=== PATIENT | male | born 1960 | race Caucasian/White ===

== ENCOUNTER 2019-04-07 08:07 | Emergency (ER) | payer OTHER ==
[~2019-04-07] VITALS: Ht 180.3 cm; Wt 90.7 kg
[2019-04-07 08:07] VITALS: BP 151/101
--- NOTE | 2019-04-07 08:29 | PHYS DOC ---
Past History Past Medical History: No Pertinent History Past Surgical History: No Surgical History Smoking: Cigarettes, Less than 1pk/day Alcohol Use: Occasionally Drug Use: None Adult General Chief Complaint Chief Complaint: ELBOW PROBLEM HPI HPI Patient is a 58-year-old male presents complaining of right, dominant, elbow pain. He accidentally hit it against a surface approximately 2 weeks ago. Reinjured again yesterday. He has been having some numbness in the radial aspect of his hand radiating from his elbow since the initial injury, approximately 2 weeks ago. Slightly increased pain with movement. He is allergic to aspirin so he has not taken any anti-inflammatory pain medicine. Increased discomfort with grasping objects and a subjective weakness. Pain seems to be more on the lateral aspect of the elbow. No radiation into the arm or shoulder. No association with exertion. Pain is mild.[] Review of Systems Review of Systems Constitutional: Denies fever or chills [] Eyes: Denies change in visual acuity, redness, or eye pain [] HENT: Denies nasal congestion or sore throat [] Respiratory: Denies cough or shortness of breath [] Cardiovascular: Chest pain or palpitations[] GI: Denies abdominal pain, nausea, vomiting, bloody stools or diarrhea [] : Denies dysuria or hematuria [] Musculoskeletal: See history of present illness[] Integument: Denies rash or skin lesions [] Neurologic: Denies headache, focal weakness or sensory changes [] Endocrine: Denies polyuria or polydipsia [] All other systems were reviewed and found to be within normal limits, except as documented in this note. Allergies Allergies Allergies Coded Allergies Type Severity Reaction Last Updated Verified aspirin Allergy Unknown 04/07/19 Yes codeine Allergy Unknown 04/07/19 Yes diphenhydramine Allergy Unknown 04/07/19 Yes Physical Exam Physical Exam Constitutional: Well developed, well nourished, no acute distress, non-toxic appearance. [] HENT: Normocephalic, atraumatic, bilateral external ears normal, oropharynx moist, no oral exudates, nose normal. [] Eyes: PERRLA, EOMI, conjunctiva normal, no discharge. [] Neck: Normal range of motion, no tenderness, supple, no stridor. [] Cardiovascular:Heart rate regular rhythm, no murmur [] Lungs & Thorax: Bilateral breath sounds clear to auscultation [] Abdomen: Not examined. [] Skin: Warm, dry, no erythema, no rash. [] Back: No tenderness, no CVA tenderness. [] Extremities: Right elbow has tenderness along the radial head and the lateral epicondyles. There is full active range of motion of the elbow. Strength is 5/5, he is distally neurovascularly intact. A joint above and joined below were evaluated and were normal. There was no pain with axial loading of the radius, ulna, nor humerus. The other 3 extremities show: No tenderness, no cyanosis, no clubbing, ROM intact, no edema. [] Neurologic: Alert and oriented X 3, normal motor function, normal sensory function, no focal deficits noted. [] Psychologic: Affect normal, judgement normal, mood normal. [] EKG EKG [] Radiology/Procedures Radiology/Procedures No acute fracture or dislocation on right elbow x-ray[] Course & Med Decision Making Course & Med Decision Making Pertinent Labs and Imaging studies reviewed. (See chart for details) ED course: Patient arrived, was placed in bed, and tolerated exam well. Ibuprofen was offered for pain management, but patient deferred due to his history of nausea and vomiting with aspirin. He was transported to and from radiology with any complications. An Satnam wrap was applied, he was distally neurovascularly intact after Satnam wrap application. All questions were answered. He was discharged in improved condition. Medical decision making: There is no evidence of an acute fracture, dislocation, significant neurologic or vascular compromise.[] Dragon Disclaimer Dragon Disclaimer This electronic medical record was generated, in whole or in part, using a voice recognition dictation system. Departure Departure: Impression: Primary Impression: Right elbow pain Disposition: 01 HOME, SELF-CARE Condition: IMPROVED Referrals: PCP,NO (PCP) Patient Instructions: Elbow Injury Additional Instructions: Follow-up with your regular doctor in 2 days. If you do not have regular doctor list of local clinics will be provided for you. Return to the ER if worsening pain, weakness, numbness, or any other concerns. Scripts Prednisone (PREDNISONE) 20 Mg Tablet 20 MG PO as directed for inflammation, #20 TAB 3 tablets daily on days 1, 2, and 3 2 tablets daily on days 4, 5, and 6 1 tablet daily on days 7, 8, and 9 Half tablet daily on days 10 through 13 Prov: RAJENDRA RETANA DO 04/07/19 Meloxicam (MELOXICAM) 7.5 Mg Tablet 7.5 MG PO DAILY for inflammation, #20 TAB Prov: RAJENDRA RETANA DO 04/07/19 RAJENDRA RETANA DO Apr 07, 2019 08:29
[2019-04-07] MEDS ORDERED: PRED20TA PO (08:47)
[2019-04-07] MEDS ORDERED: MELO7.5T29 PO (08:47)
--- NOTE | 2019-04-07 08:47 | RAD ---
Examination: ELBOW RIGHT 3V History: Previous history of injury. Pain recently after lifting heavy items Comparison/Correlation: None Findings: Total 3 images of the right elbow were obtained. Significant enthesopathy at the distal triceps tendon insertion site noted. Joint spaces are unremarkable. No acute fracture or bony destruction. No evidence of joint effusion. Impression: No acute process. Electronically signed by: Benji Solorzano MD (04/07/2019 8:44 AM) [facility]
== END 2019-04-07 08:53 | disposition home or self-care (01) ==
LOC: ER 08:07
DX: M25.521 Pain in right elbow (principal); R20.0 Anesthesia of skin; F17.210 Nicotine dependence, cigarettes, uncomplicated; Z88.6 Allergy status to analgesic agent; Z88.5 Allergy status to narcotic agent; Z88.8 Allergy status to other drugs, medicaments and biological substances
CPT/HCPCS: 73080; 99284

== ENCOUNTER 2019-04-09 07:40 | Emergency (ER) | payer OTHER ==
[~2019-04-09] VITALS: Ht 180.3 cm; Wt 86.1 kg
[~2019-04-09 07:40] MED LIST: MELO7.5T29 PO; PRED20TA PO
[2019-04-09 08:23] LABS: ALBUMIN 3.9 g/dL (3.4-5.0); ALBUMIN/GLOBULIN RATIO 1.1 (1.0-1.7); CALCIUM 9.1 mg/dL (8.5-10.1); GFR 76.7; POTASSIUM 4.2 mmol/L (3.5-5.1); TOTAL BILIRUBIN 0.3 mg/dL (0.2-1.0); TOTAL PROTEIN 7.4 g/dL (6.4-8.2)
[2019-04-09 08:24] LABS: BASO % 1 % (0-3); EOS # 0.2 x10^3/uL (0.0-0.7); EOS % 3 % (0-3); HEMATOCRIT 45.9 % (39.0-53.0); HEMOGLOBIN 15.7 g/dL (13.0-17.5); LYMPH % 32 % (24-48); MEAN CORPUSCULAR HEMOGLOBIN 30 pg (25-35); MEAN CORPUSCULAR HGB CONC 34 g/dL (31-37); MEAN CORPUSCULAR VOLUME 88 fL (79-100); MONO # 0.4 x10^3/uL (0.0-1.1); MONO % 7 % (0-9); NEUT # 3.6 x10^3uL (1.8-7.7); NEUT % 58 % (31-73); PLATELET COUNT 237 x10^3/uL (140-400); RED BLOOD COUNT 5.24 x10^6/uL (4.30-5.70); RED CELL DISTRIBUTION WIDTH 13.7 % (11.5-14.5); WHITE BLOOD COUNT 6.2 x10^3/uL (4.0-11.0)
--- NOTE | 2019-04-09 08:25 | PHYS DOC ---
Past History Past Medical History: No Pertinent History Past Surgical History: Other Additional Past Surgical Histo: right knee surgery Smoking: Cigarettes, Less than 1pk/day Alcohol Use: Occasionally Drug Use: None Adult General Chief Complaint Chief Complaint: ABDOMINAL PAIN [facility] HPI 58-year-old male presents with abdominal pain and concern for hernia. The patient has a known umbilical hernia for quite some time. He was told by the previous physician that if it ever becomes hard and he has abdominal pain he should come to the hospital. The patient got up at 5:30 this morning was feeling fine. Around 6 AM he started to get pain in that general area of the hernia. He palpated the hernia and it was found to be firm. His pain was an 8 out of 10. He describes it as a cramping sensation. Since coming to the hospital, the pain has improved and the hernia is no longer firm to the touch. The patient is wants to make sure it's not incarcerated. He denies fever or chills. He's had no vomiting. Last bowel movement was yesterday. Review of Systems Review of Systems Constitutional: Denies fever or chills [] Eyes: Denies change in visual acuity, redness, or eye pain [] HENT: Denies nasal congestion or sore throat [] Respiratory: Denies cough or shortness of breath [] Cardiovascular: No additional information not addressed in HPI [] GI: umbilical abdominal pain. Denies nausea, vomiting, bloody stools or diarrhea [] : Denies dysuria or hematuria [] Musculoskeletal: Denies back pain or joint pain [] Integument: Denies rash or skin lesions [] Neurologic: Denies headache, focal weakness or sensory changes [] Endocrine: Denies polyuria or polydipsia [] All other systems were reviewed and found to be within normal limits, except as documented in this note. Allergies Allergies Allergies Coded Allergies Type Severity Reaction Last Updated Verified aspirin Allergy Unknown 04/09/19 Yes codeine Allergy Unknown 04/09/19 Yes diphenhydramine Allergy Unknown 04/09/19 Yes Physical Exam Physical Exam Constitutional: Well developed, well nourished, no acute distress, non-toxic appearance. [] HENT: Normocephalic, atraumatic, bilateral external ears normal, oropharynx moist, no oral exudates, nose normal. [] Eyes: PERRLA, EOMI, conjunctiva normal, no discharge. [] Neck: Normal range of motion, no tenderness, supple, no stridor. [] Cardiovascular:Heart rate regular rhythm, no murmur [] Lungs & Thorax: Bilateral breath sounds clear to auscultation [] Abdomen: Bowel sounds normal, soft, no tenderness, no masses, no pulsatile masses. Periumbilical hernia, easily reducible. [] Skin: Warm, dry, no erythema, no rash. [] Back: No tenderness, no CVA tenderness. [] Extremities: No tenderness, no cyanosis, no clubbing, ROM intact, no edema. [] Neurologic: Alert and oriented X 3, normal motor function, normal sensory function, no focal deficits noted. [] Psychologic: Affect normal, judgement normal, mood normal. [] Current Patient Data Vital Signs Vital Signs Date Time Temp Pulse Resp B/P (MAP) Pulse Ox O2 Delivery O2 Flow Rate FiO2 04/09/19 07:48 97.6 84 18 98 Room Air EKG EKG [] Radiology/Procedures Radiology/Procedures [] Impressions: CT scan of the abdomen and pelvis with contrast 04/09/2019 CLINICAL HISTORY: Umbilical pain. TECHNIQUE: After the intravenous administration of 75 cc of Omnipaque 300 only, contiguous, 5 mm axial sections were obtained through the abdomen and pelvis. One or more of the following individualized dose reduction techniques were utilized for this study: 1. Automated exposure control. 2. Adjustment of the mA and/or kV according to patient size. 3. Use of iterative reconstruction technique. FINDINGS: Images through the lung bases demonstrate minimal dependent subsegmental atelectasis bilaterally. The liver, spleen, pancreas, and adrenal glands are within normal limits. Rounded low-attenuation lesions are seen involving both kidneys. These measure 3 mm to 3 cm in size. They likely represent cysts. Atheromatous/atherosclerotic plaque formation is seen involving the abdominal aorta and its branches. The abdominal aorta tapers normally. Calcified gallstones are seen within the gallbladder which is slightly contracted. No free fluid or free air is seen within the abdomen. There is no evidence of bowel obstruction. The appendix is well-visualized and is within normal limits. Multiple diverticula are seen involving the colon, particularly the descending and sigmoid colon. No inflammatory changes are seen in the adjacent fat. An umbilical hernia is seen. The hernia sac measures 3.5 cm in size. It contains fat. No bowel loop is seen extending into the hernia sac. Images through the pelvis demonstrate the urinary bladder distended with urine. The prostate gland is enlarged likely related to BPH. A punctate calcification is seen within the inferior pelvis consistent with a phlebolith. No free fluid is seen. Minimal S-shaped curvature of the thoracolumbar spine is noted. Degenerative changes are seen involving lower thoracic and mid and lower lumbar spine along with both hips. IMPRESSION: No acute abnormality is seen. Electronically signed by: Rex Vázquez MD (04/09/2019 9:24 AM) [place] [id number] DICTATED AND SIGNED BY: REX VÁZQUEZ MD DATE: 04/09/19923 CC: PALMER STONE DO; PCP,MIKAELA ~ Course & Med Decision Making Course & Med Decision Making Pertinent Labs and Imaging studies reviewed. (See chart for details) Patient's labs are unremarkable. His CT shows that there is only found in the umbilical hernia. There is no bowel involved. He is stable for discharge at this time. [] Dragon Disclaimer Dragon Disclaimer This electronic medical record was generated, in whole or in part, using a voice recognition dictation system. Departure Departure: Impression: Primary Impression: Umbilical hernia Disposition: 01 HOME, SELF-CARE Condition: STABLE Referrals: PCP,MIKAELA (PCP) Patient Instructions: Hernia Problem Qualifiers Primary Impression: Umbilical hernia Obstruction and gangrene presence: without obstruction or gangrene Qualified Codes: K42.9 - Umbilical hernia without obstruction or gangrene PALMER STONE DO Apr 09, 2019 08:25
[2019-04-09] MEDS ORDERED: IOHEXOL 300 MG/ML 75 ML VIAL. IV ONE (08:30)
--- NOTE | 2019-04-09 09:27 | RAD ---
CT scan of the abdomen and pelvis with contrast 04/09/2019 CLINICAL HISTORY: Umbilical pain. TECHNIQUE: After the intravenous administration of 75 cc of Omnipaque 300 only, contiguous, 5 mm axial sections were obtained through the abdomen and pelvis. One or more of the following individualized dose reduction techniques were utilized for this study: 1. Automated exposure control. 2. Adjustment of the mA and/or kV according to patient size. 3. Use of iterative reconstruction technique. FINDINGS: Images through the lung bases demonstrate minimal dependent subsegmental atelectasis bilaterally. The liver, spleen, pancreas, and adrenal glands are within normal limits. Rounded low-attenuation lesions are seen involving both kidneys. These measure 3 mm to 3 cm in size. They likely represent cysts. Atheromatous/atherosclerotic plaque formation is seen involving the abdominal aorta and its branches. The abdominal aorta tapers normally. Calcified gallstones are seen within the gallbladder which is slightly contracted. No free fluid or free air is seen within the abdomen. There is no evidence of bowel obstruction. The appendix is well-visualized and is within normal limits. Multiple diverticula are seen involving the colon, particularly the descending and sigmoid colon. No inflammatory changes are seen in the adjacent fat. An umbilical hernia is seen. The hernia sac measures 3.5 cm in size. It contains fat. No bowel loop is seen extending into the hernia sac. Images through the pelvis demonstrate the urinary bladder distended with urine. The prostate gland is enlarged likely related to BPH. A punctate calcification is seen within the inferior pelvis consistent with a phlebolith. No free fluid is seen. Minimal S-shaped curvature of the thoracolumbar spine is noted. Degenerative changes are seen involving lower thoracic and mid and lower lumbar spine along with both hips. IMPRESSION: No acute abnormality is seen. Electronically signed by: Rex Reich MD (04/09/2019 9:24 AM) [place] [id number]
[2019-04-09 09:59] VITALS: BP 136/98
== END 2019-04-09 09:58 | disposition home or self-care (01) ==
LOC: ER 07:40
DX: K42.9 Umbilical hernia without obstruction or gangrene (principal); F17.210 Nicotine dependence, cigarettes, uncomplicated; Z88.6 Allergy status to analgesic agent; Z88.5 Allergy status to narcotic agent; Z88.8 Allergy status to other drugs, medicaments and biological substances
CPT/HCPCS: 36415; 74177; 80053; 85025; 99285; Q9967

== ENCOUNTER 2019-06-26 10:13 | Emergency (ER) | payer OTHER ==
[~2019-06-26] VITALS: Ht 182.9 cm; Wt 79.8 kg
--- NOTE | 2019-06-26 10:35 | PHYS DOC ---
Past History Past Medical History: No Pertinent History Past Surgical History: Other Additional Past Surgical Histo: right knee surgery Smoking: Cigarettes, Less than 1pk/day Alcohol Use: Occasionally Drug Use: None Adult General Chief Complaint Chief Complaint: CHEST PAIN HPI HPI Patient is a 58-year-old male who presents to the emergency department from his PCPs office. He states that for the past week, he has had a cough, productive of greenish and yellow sputum, as well as pleuritic lower back pain, as well as pain in that same spot with coughing. He DENIES having any chest pain, exertional, pleuritic, or otherwise. He has had a weight loss of about 10 pounds in the past month or so, unintentional. His PCPs office called and spoke to the nursing staff here, although I did not get a chance to speak to the patient's PCP, and it appears that he had some outpatient difficulty obtaining a CT, as he has concern for PE or lung mass, although reportedly the PCP did "a workup" about a month ago for chest discomfort. The patient has not had any nausea or vomiting, but does report some occasional loose stools. He has not had any fevers or chills, and denies any significant shortness of breath at this time. His main complaint is cough and lower back pain which is worse with coughing and deep breathing. There are no alleviating or exacerbating factors to the patient's symptoms. The patient's PCPs note from today has been reviewed, and that is the only record accessible to me at this time. Review of Systems Review of Systems Constitutional: Denies fever or chills [] Eyes: Denies change in visual acuity, redness, or eye pain [] HENT: Denies nasal congestion or sore throat [] Respiratory:No additional information not addressed in HPI [] Cardiovascular: The patient denies any shortness of breath, chest pain, palpitations, or orthopnea[] GI: Denies abdominal pain, nausea, vomiting, bloody stools or diarrhea [] : Denies dysuria or hematuria [] Musculoskeletal: Denies back pain or joint pain, other than as discussed in the history of present illness [] Integument: Denies rash or skin lesions [] Neurologic: Denies headache, focal weakness or sensory changes [] Endocrine: Denies polyuria or polydipsia [] All other systems were reviewed and found to be within normal limits, except as documented in this note. Allergies Allergies Allergies Coded Allergies Type Severity Reaction Last Updated Verified aspirin Allergy Unknown 04/09/19 Yes codeine Allergy Unknown 04/09/19 Yes diphenhydramine Allergy Unknown 04/09/19 Yes Physical Exam Physical Exam PHYSICAL EXAM: CONSTITUTIONAL: Well developed, well nourished HEAD: normocephalic, atraumatic EENT: PERRL, EOMI. Conjunctivae normal color, sclerae non-icteric; moist mucous membranes. NECK: Supple, non-tender; no meningismus. LUNGS: There is mild scattered expiratory rhonchi and wheezes, breath sounds are mildly diminished, breathing even and unlabored. HEART: Regular rate and rhythm, no murmur CHEST: No deformity; non-tender ABDOMEN: The abdomen is soft, and non-tender, no masses or bruits. EXTREM: Normal ROM; no deformity, no calf tenderness. Normal pulses palpable in all extremities. There is no pedal edema. SKIN: No rash; no diaphoresis NEURO: Alert; normal speech and cognition; CN's grossly intact; strength grossly intact without focal deficit. BACK: No CVA TTP.There is no bony tenderness to palpation of the thoracic or lumbar spine. Current Patient Data Lab Results Laboratory Tests Test 06/26/19 10:35 White Blood Count 5.4 x10^3/uL Red Blood Count 4.80 x10^6/uL Hemoglobin 14.3 g/dL Hematocrit 43.0 % Mean Corpuscular Volume 90 fL Mean Corpuscular Hemoglobin 30 pg Mean Corpuscular Hemoglobin Concent 33 g/dL Red Cell Distribution Width 13.2 % Platelet Count 178 x10^3/uL Neutrophils (%) (Auto) 63 % Lymphocytes (%) (Auto) 24 % Monocytes (%) (Auto) 7 % Eosinophils (%) (Auto) 4 % Basophils (%) (Auto) 1 % Neutrophils # (Auto) 3.4 x10^3uL Lymphocytes # (Auto) 1.3 x10^3/uL Monocytes # (Auto) 0.4 x10^3/uL Eosinophils # (Auto) 0.2 x10^3/uL Basophils # (Auto) 0.0 x10^3/uL Sodium Level 140 mmol/L Potassium Level 4.0 mmol/L Chloride Level 106 mmol/L Carbon Dioxide Level 23 mmol/L Anion Gap 11 Blood Urea Nitrogen 20 mg/dL Creatinine 0.9 mg/dL Estimated GFR (Cockcroft-Gault) 86.7 BUN/Creatinine Ratio 22 Glucose Level 97 mg/dL Calcium Level 8.8 mg/dL Total Bilirubin 0.3 mg/dL Aspartate Amino Transf (AST/SGOT) 21 U/L Alanine Aminotransferase (ALT/SGPT) 28 U/L Alkaline Phosphatase 84 U/L Troponin I Quantitative < 0.017 ng/mL CL-Xdi-S-Type Natriuretic Peptide 27 pg/mL Total Protein 6.6 g/dL Albumin 3.4 g/dL Albumin/Globulin Ratio 1.1 Lipase 148 U/L Current Medications Medications (Trade) Dose Ordered Sig/Chris Route PRN Reason Start Time Stop Time Status Last Admin Dose Admin Albuterol/ Ipratropium (Duoneb) 3 ml 1X ONCE NEB 06/26/19 10:45 06/26/19 10:46 DC 06/26/19 10:30 Iohexol (Omnipaque 350 Mg/ml) 100 ml 1X ONCE IV 06/26/19 10:45 06/26/19 10:46 DC 06/26/19 11:11 Ondansetron HCl (Zofran) 4 mg 1X ONCE IVP 06/26/19 12:00 06/26/19 12:01 DC 06/26/19 11:56 EKG EKG Normal sinus rhythm with a normal rate, normal axis, normal intervals, there are no acute ischemic ST/T changes.[] Radiology/Procedures Radiology/Procedures PROCEDURE: CT ANGIOGRAPHY CHEST CTA scan of the Chest with Contrast (Pulmonary Embolism protocol) 06/26/2019 Clinical History: Shortness of breath, pleuritic pain. Technique: After the intravenous administration of 90 cc of Omnipaque 350, contiguous, 0.625 mm axial sections were obtained through the chest. 2 mm axial and 3D MIP coronal and sagittal reconstructed images were obtained. One or more of the following individualized dose reduction techniques were utilized for this study: 1. Automated exposure control. 2. Adjustment of the mA and/or kV according to patient size. 3. Use of iterative reconstruction technique. Findings: No filling defect is seen within the major branches of either pulmonary artery. There is no CT evidence of pulmonary embolism. The heart is mildly enlarged. Atherosclerotic calcification thoracic aorta and its branches is noted. The thoracic aorta is tortuous but tapers normally. Enlarged hilar and mediastinal lymph nodes are seen which measure 1 to 2.5 cm in size. Mild to moderate bullous emphysematous changes are seen scattered throughout both lungs. Dependent subsegmental atelectasis is seen bilaterally. No area of consolidation is seen. No pneumothorax or pleural effusion is noted. Images through the upper abdomen demonstrate calcified gallstones within the gallbladder. Degenerative changes are seen throughout the thoracic spine. Impression: There is no CT evidence of pulmonary embolism. [] Course & Med Decision Making Course & Med Decision Making Pertinent Labs and Imaging studies reviewed. (See chart for details) []12:50 PM: The patient's condition remains stable. he is not having any symptoms suggestive of cholecystitis and has no right upper quadrant tenderness on repeat exam. His presentation is most consistent with a bronchitis/COPD exacerbation picture. Importance of close outpatient follow-up and smoking cessation was discussed in detail with the patient. Dragon Disclaimer Dragon Disclaimer This electronic medical record was generated, in whole or in part, using a voice recognition dictation system. Departure Departure: Impression: Primary Impression: COPD (chronic obstructive pulmonary disease) Additional Impression: Atypical chest pain Disposition: HOME, SELF-CARE Condition: STABLE Referrals: JAYA RESENDIZ MD (PCP) Patient Instructions: Acute Bronchitis, Chronic Obstructive Pulmonary Disease, Smoking Cessation Additional Instructions: Ibuprofen 400-600 mg every 6 hours may help improve your symptoms. Applying a heating pad to the affected area may help improve your symptoms. Scripts Albuterol Sulfate (PROAIR HFA INHALER) 8.5 Gm Hfa.aer.ad 2 PUFF INH PRN Q6HRS PRN for SHORTNESS OF BREATH, #1 INHALER 0 Refills Prov: MARISSA CALIXTO MD 06/26/19 Prednisone (PREDNISONE) 20 Mg Tablet 40 MG PO DAILY for - for 5 Days, #10 TAB Prov: MARISSA CALIXTO MD 06/26/19 Azithromycin (ZITHROMAX) 250 Mg Tablet 1 PKG PO UD for -, #6 TAB Prov: MARISSA CALIXTO MD 06/26/19 Problem Qualifiers MARISSA CALIXTO MD Jun 26, 2019 10:34
[2019-06-26] MEDS ORDERED: IOHEXOL 350 MG/ML 100 ML VIAL. IV ONE (10:45)
[2019-06-26] MEDS ORDERED: IPRATRPIUM/ALBUTEROL 0.5/2.5MG 3 ML NEBU. NEB ONE (10:45)
[2019-06-26 11:01] LABS: BASO % 1 % (0-3); EOS # 0.2 x10^3/uL (0.0-0.7); EOS % 4 % (0-3); HEMOGLOBIN 14.3 g/dL (13.0-17.5); LYMPH # 1.3 x10^3/uL (1.0-4.8); LYMPH % 24 % (24-48); MEAN CORPUSCULAR HEMOGLOBIN 30 pg (25-35); MEAN CORPUSCULAR HGB CONC 33 g/dL (31-37); MEAN CORPUSCULAR VOLUME 90 fL (79-100); MONO # 0.4 x10^3/uL (0.0-1.1); MONO % 7 % (0-9); NEUT # 3.4 x10^3uL (1.8-7.7); NEUT % 63 % (31-73); PLATELET COUNT 178 x10^3/uL (140-400); RED CELL DISTRIBUTION WIDTH 13.2 % (11.5-14.5); WHITE BLOOD COUNT 5.4 x10^3/uL (4.0-11.0)
[2019-06-26 11:20] LABS: ALBUMIN 3.4 g/dL (3.4-5.0); ALBUMIN/GLOBULIN RATIO 1.1 (1.0-1.7); CALCIUM 8.8 mg/dL (8.5-10.1); CREATININE 0.9 mg/dL (0.7-1.3); GFR 86.7; TOTAL BILIRUBIN 0.3 mg/dL (0.2-1.0); TOTAL PROTEIN 6.6 g/dL (6.4-8.2)
[2019-06-26] MEDS ORDERED: ONDANSETRON PF 4 MG/2 ML VIAL. IVP ONE (12:00)
--- NOTE | 2019-06-26 12:41 | RAD ---
CTA scan of the Chest with Contrast (Pulmonary Embolism protocol) 06/26/2019 Clinical History: Shortness of breath, pleuritic pain. Technique: After the intravenous administration of 90 cc of Omnipaque 350, contiguous, 0.625 mm axial sections were obtained through the chest. 2 mm axial and 3D MIP coronal and sagittal reconstructed images were obtained. One or more of the following individualized dose reduction techniques were utilized for this study: 1. Automated exposure control. 2. Adjustment of the mA and/or kV according to patient size. 3. Use of iterative reconstruction technique. Findings: No filling defect is seen within the major branches of either pulmonary artery. There is no CT evidence of pulmonary embolism. The heart is mildly enlarged. Atherosclerotic calcification thoracic aorta and its branches is noted. The thoracic aorta is tortuous but tapers normally. Enlarged hilar and mediastinal lymph nodes are seen which measure 1 to 2.5 cm in size. Mild to moderate bullous emphysematous changes are seen scattered throughout both lungs. Dependent subsegmental atelectasis is seen bilaterally. No area of consolidation is seen. No pneumothorax or pleural effusion is noted. Images through the upper abdomen demonstrate calcified gallstones within the gallbladder. Degenerative changes are seen throughout the thoracic spine. Impression: There is no CT evidence of pulmonary embolism. Electronically signed by: Rex Reich MD (06/26/2019 12:38 PM) [id number]
[2019-06-26 12:50] VITALS: BP 144/88
[2019-06-26] MEDS ORDERED: ALBU2.5V8 INH (12:53)
[2019-06-26] MEDS ORDERED: AZIT250T PO (12:53)
[2019-06-26] MEDS ORDERED: PRED20TA PO (12:53)
--- NOTE | 2019-06-28 08:16 | EKG ---
[address] [id number] Test Date: 2019-06-26 Test Time: 10:30:18 Pat Name: JUAN CARLOS KELLER Department: Room: Gender: M Copy Manager: : 1960 Requested By: MARISSA CALIXTO Order Number: [id number] Reading MD: Measurements Intervals [place] Rate: 82 P: 41 FL: 166 QRS: 63 QRSD: 92 T: 54 QT: 344 QTc: 405 Interpretive Statements SINUS RHYTHM NORMAL ECG RI6.01 No previous ECG available for comparison
== END 2019-06-26 13:04 | disposition home or self-care (01) ==
LOC: ER 10:13
DX: J44.1 Chronic obstructive pulmonary disease with (acute) exacerbation (principal); R07.89 Other chest pain; F17.210 Nicotine dependence, cigarettes, uncomplicated; Z88.5 Allergy status to narcotic agent; Z88.6 Allergy status to analgesic agent; Z88.8 Allergy status to other drugs, medicaments and biological substances
CPT/HCPCS: 36415; 71275; 80053; 83690; 83880; 84484; 85025; 93005; 94640; 96374; 99285; J2405; J7620; Q9967